=== PATIENT | female | born 1980 | race American Indian/Alaskan Native ===

== ENCOUNTER 2021-09-26 05:42 | Day surgery (SDC) | payer OTHER ==
[2021-09-25 13:47] LABS: Hematocrit 23.8 % (30.3-42.9); Hemoglobin 7.7 gm/dl (10.1-14.3); Mean Corpuscular HGB Conc 32 % (30-34); Mean Corpuscular Volume 78 fl (79-97); Platelet Count 366 K/mm3 (140-440); Red Blood Count 3.04 M/mm3 (3.65-5.03); Red Cell Distribution Width 15.8 % (13.2-15.2)
[2021-09-25 15:27] LABS: INR 0.86 (0.87-1.13)
[2021-09-25 15:28] LABS: Partial Thromboplastin Time 25.9 Sec. (24.2-36.6)
[2021-09-26] MEDS ORDERED: SODIUM CHLORIDE 0.9% 500 ML 500 ML IV ONE (06:00)
[2021-09-26] MEDS ORDERED: LACTATED RINGERS 1,000 ML ONE (06:13)
[2021-09-26] MEDS ORDERED: BACTERIOSTATIC SODIUM CHLORIDE 0.9% 30 ML VIAL INFILTRATI ONE (06:14)
[2021-09-26] MEDS ORDERED: LACTATED RINGERS 1,000 ML IV SCH (07:30)
--- NOTE | 2021-09-26 07:30 | Anesthesia Day of Surgery ---
Anesthesia Day of Surgery - Day of Surgery Patient Examined: Yes Patient H&P Reviewed: Yes Patient is NPO: Yes
--- NOTE | 2021-09-26 07:30 | Anesthesia Consultation ---
Anesthesia Consult and Med Hx Date of service: 09/26/21 - Airway Anesthetic Teeth Evaluation: Good, Chipped (two broken teeth bottom back) ROM Head & Neck: Adequate Mental/Hyoid Distance: Adequate Mallampati Class: Class II Intubation Access Assessment: Probably Good - Pre-Operative Health Status ASA Pre-Surgery Classification: ASA1 Proposed Anesthetic Plan: General - Central Nervous System Hx Psychiatric Problems: No - Hematic Hx Anemia: Yes - Other Systems Hx Alcohol Use: Yes (Occas) Hx Cancer: No
[2021-09-26] MEDS ORDERED: propofoL 200 MG/20 ML VIAL IV ONE (07:34)
[2021-09-26] MEDS ORDERED: LIDOCAINE MPF (2%) 20 MG/1 ML VIAL 5 ML ONE (07:34)
[2021-09-26] MEDS ORDERED: HYDROmorphone 1 MG/1 ML INJ ONE (07:34)
[2021-09-26] MEDS ORDERED: ceFAZolin/Water 2 GM/20 ML 2 GM/20 ML SYRINGE IV ONE (07:49)
[2021-09-26] MEDS ORDERED: MIDAZOLAM 2 MG/2 ML INJ IV NR (08:00)
[2021-09-26] MEDS ORDERED: ceFAZolin/STERILE WATER 2 GM/20 ML SYRINGE IV NR (08:00)
[2021-09-26] MEDS ORDERED: FAMOTIDINE 20 MG/2 ML INJ IV NR (08:00)
[2021-09-26] MEDS ORDERED: FERRIC SUBSULFATE TOPICAL SOLN 8 ML TP ONE ×4 (08:17→08:50)
[2021-09-26] MEDS ORDERED: KETOROLAC 30 MG/1 ML INJ ONE (08:23)
[2021-09-26] MEDS ORDERED: dexAMETHasone 20 MG/5 ML VIAL ONE (08:23)
[2021-09-26] MEDS ORDERED: ONDANSETRON 4 MG/2 ML INJ ONE (08:23)
[2021-09-26] MEDS ORDERED: ACETIC ACID 3% SOLN 60 ML TP ONE ×2 (08:25→08:28)
[2021-09-26] MEDS ORDERED: SODIUM CHLORIDE 0.9% IRR 1,500 ML BOTTLE IR ONE (08:28)
--- NOTE | 2021-09-26 09:11 | History and Physical Report ---
History of Present Illness Date of examination: 09/26/21 Date of admission: 09/26/21 Chief complaint: Unprovoked vaginal bleeding x 1wk History of present illness: Was well until 1 wk ago when she started with profuse and continuing vaginal bleeding. This was managed at [facility] with transfusion of 5 units of PRBC. Office pap was HGSIL from [facility]. Past History Past Medical History: no pertinent history Past Surgical History: other (Tubal sterilization 2004) [employer] History: abnormal PAP smear (HGSIL) Family/Genetic History: none Social history: no significant social history Medications and Allergies Allergies Allergy/AdvReac Type Severity Reaction Status Date / Time No Known Allergies Allergy Unverified 09/25/21 11:54 Home Medications Medication Instructions Recorded Confirmed Last Taken Type traMADoL [Ultram] 50 mg PO Q6HR PRN 09/25/21 09/25/21 Unknown History Active Meds: Active Medications Famotidine (Famotidine 20 Mg/2 Ml Inj) 20 mg IV PREOP NR Stop: 09/26/21 10:00 Last Admin: 09/26/21 07:55 Dose: 20 mg Lactated Ringer's (Lactated Ringers) 1,000 mls @ 100 mls/hr IV DIRECT ANEUDY Last Admin: 09/26/21 07:55 Dose: 100 mls/hr Midazolam HCl (Midazolam 2 Mg/2 Ml Inj) 2 mg IV PREOP NR Stop: 09/26/21 23:59 Last Admin: 09/26/21 08:00 Dose: 2 mg Review of Systems All systems: negative Genitourinary: vaginal bleeding Hematologic/Lymphatic: no easy bleeding - Vital Signs Vital signs: Vital Signs Temp Pulse Resp BP Pulse Ox 98.2 F 93 H 16 120/56 100 09/25/21 13:20 09/25/21 13:20 09/25/21 13:20 09/25/21 13:20 09/25/21 13:20 Temp Pulse Resp BP Pulse Ox 99.3 F 86 15 118/61 100 09/26/21 06:35 09/26/21 06:35 09/26/21 06:35 09/26/21 06:35 09/26/21 06:35 - Physical Exam Breasts: Positive: deferred Cardiovascular: Normal S1, Normal S2 Lungs: Positive: Normal air movement Abdomen: Positive: normal appearance, soft, normal bowel sounds. Negative: tenderness Genitourinary (Female): Positive: normal external genitalia Vulva: both: normal Vagina: Positive: normal moisture Cervix: Positive: lesion, ulceration, friable Uterus: Positive: normal size Adnexa: both: normal Anus/Rectum: Positive: normal perianal skin, heme negative. Negative: rectal mass, hemorrhoids Extremities: Deep Tendon Reflex Grade: Normal +2 Results Result Diagrams: 09/25/21 12:56 Abnormal lab results 09/25/21 09/25/21 09/26/21 Range/Units 12:56 13:20 06:30 RBC 3.04 L (3.65-5.03) M/mm3 Hgb 7.7 L (10.1-14.3) gm/dl Hct 23.8 L (30.3-42.9) % MCV 78 L (79-97) fl MCH 25 L (28-32) pg RDW 15.8 H (13.2-15.2) % INR 0.86 L (0.87-1.13) Crossmatch See Detail All other labs normal. Assessment and Plan - Patient Problems (1) HGSIL (high grade squamous intraepithelial lesion) on Pap smear of cervix Current Visit: Yes Status: Acute Plan to address problem: For EUA, colposcopy, D&c, Cervical Biopsies.
--- NOTE | 2021-09-26 09:36 | Operative Report ---
Operative Report Operative Report: Date of service: 09/26/2021 Preop diagnosis: HGSIL, vagina bleeding. Postop diagnosis: Same Procedure: EUA, colposcopy, D&C, Endocervical curette, Cervical biopsies. Surgeon: Srini Keita MD Anesthesiologist: MD Landon Anesthesia: IV sedation EBL: 150cc. Complications: None Findings: Vulva and vagina were normal. The cervix was friable and hemorrhagic. After the application of 3% acetic acid, there was aceto whitening circumferentially around the cervical os, there was a bulbous distention of the cervix particularly on the left side, the uterine cavity sounded to 11 cm, there was copious curettings from within the endometrial cavity, curettings of the cervical canal also yielded a fleshy strip. The diameter of the cervix was 4 cm. Procedure in details: The patient was taken to the operating room, she was placed in the straight supine position and given IV sedation. Patient was then put in the lithotomy position and prepped in the vulva vagina and abdomen. The drapes were placed. A timeout was done. With the go ahead from the recoil spring winder a bivalve vaginal speculum was placed. The findings as described above. The cervix was stabilized by grasping healthy vaginal mucosa and the right lateral fornix. The uterine cavity was sounded. The canal was dilated with a Pugh dilator allowing the Cavity to be sharply curetted. The endocervical canal was sharply curetted. Multiple biopsies were obtained 6.8,1,11, 9 of the squamo-columnar junction. The ensuing bleeding was controlled with Monsel's solution. A red rubber catheter was used to empty the bladder. There was no active bleeding at the end of suctioning. The vaginal instruments were withdrawn. All sponges and instruments were accounted for. There were no complications. The estimated blood loss was less than 150 mL. The patient tolerated the procedure well and was transferred to the recovery room in very good condition.
[2021-09-26] MEDS ORDERED: SODIUM CHLORIDE 0.9% 500 ML 500 ML ONE (09:37)
[2021-09-26] MEDS ORDERED: SODIUM CHLORIDE 0.9% 500 ML 500 ML IV NR (09:37)
[2021-09-26] MEDS ORDERED: SODIUM CHLORIDE 0.9% 1000 ML 1,000 ML ONE (11:01)
[2021-09-26 13:20] LABS: Hematocrit 25.4 % (30.3-42.9); Hemoglobin 8.1 gm/dl (10.1-14.3)
[2021-09-26 13:24] VITALS: BP 106/49
--- NOTE | 2021-09-26 16:37 | Post Anesthesia Evaluation ---
- Post Anesthesia Evaluation Patient Participated: Yes Airway Patent: Yes Stable Respiratory Function: Yes Nausea/Vomiting: No Temp > 96.8F: Yes Pain Manageable: Yes Adequeate Hydration: Yes Anesthesia Complications: No Block Receding Appropriately: Not Applicable Patient on Ventilator: No
== END 2021-09-26 14:20 | disposition home or self-care (01) ==
LOC: OR 05:42
PROVIDERS: ATTEND Obstetrics & Gynecology
DX: R87.613 High grade squamous intraepithelial lesion on cytologic smear of cervix (HGSIL) (principal); N88.8 Other specified noninflammatory disorders of cervix uteri; N93.9 Abnormal uterine and vaginal bleeding, unspecified; C53.0 Malignant neoplasm of endocervix; Z79.899 Other long term (current) drug therapy; Z98.890 Other specified postprocedural states; Z20.822 Contact with and (suspected) exposure to COVID-19; G43.909 Migraine, unspecified, not intractable, without status migrainosus; Z98.51 Tubal ligation status; Z72.89 Other problems related to lifestyle
CPT/HCPCS: 36415; 57454; 84703; 85014; 85018; 85027; 85610; 85730; 86850; 86900; 86901; 86920; 88305; 88341; 88342; J0690; J1100; J1170; J1885; J2250; J2405; J2704; J3490; J7030; J7040; J7120; P9016; U0003; Q0162